=== PATIENT | male | born 1945 | race Two or more races ===

== ENCOUNTER 2022-12-26 07:07 | Outpatient (CLI) | payer OTHER | END 2022-12-26 07:16 | disposition home or self-care (01) | LOC: RX STUDY 07:07 | PROVIDERS: ATTEND Surgery | DX: Z93.3 Colostomy status (principal); K66.0 Peritoneal adhesions (postprocedural) (postinfection); K43.5 Parastomal hernia without obstruction or gangrene; D12.6 Benign neoplasm of colon, unspecified; K57.30 Diverticulosis of large intestine without perforation or abscess without bleeding ==

== ENCOUNTER 2023-02-08 07:08 | Inpatient (IN) | payer OTHER ==
[~2023-02-08] VITALS: Ht 152.4 cm; Wt 68.0 kg
[~2023-02-08 07:08] MED LIST: HORIZANT300 MG PO; LISINOPRIL40 MG PO; METFORMIN HCL1000 M2 PO; NORVASC5 MG PO; TOPROL XL25 M1 PO
[2023-02-20 11:48] LABS: HEMATOCRIT 36.4 % (39.0-48.0); HEMOGLOBIN 12.7 g/dL (13-16.00); MEAN CELL VOLUME 95.7 fL (80.0-100.00); MEAN CORPUSCULAR HEMOGLOBIN 33.5 pg (27.00-32.0); PLATELET COUNT 209 K/uL (150-450)
[2023-02-20 11:50] LABS: URINE APPEARANCE Clear; URINE BILIRRUBIN Negative (NEGATIVE); URINE BLOOD Negative; URINE COLOR Yellow; URINE EPITHELIAL CELLS 3.3 uL (0.0-38.8); URINE GLUCOSE Negative (NEGATIVE); URINE LEUKOCYTE Negative; URINE NITRATE Negative; URINE PROTEIN Trace (NEGATIVE); URINE RBC 2.7 uL (0.0-20.8); URINE UROBILINOGEN 0.2 E.U./dl; URINE WBC 1.8 uL (0.0-23.2)
[2023-02-20 12:30] LABS: INR 1.02; PARTIAL THROMBOPLASTIN TIME 23.4 SECONDS (22.0-34.0); PROTHROMBIN TIME 10.7 SECONDS (9.0-11.5)
[2023-02-20 12:38] LABS: CREATININE SERUM 1.11 mg/dL (0.70-1.30); GFR 64.58; POTASSIUM 4.35 mEq/L (3.5-5.1)
[2023-03-09] MEDS ORDERED: ST. JOSEPH ASPI81 M2 (13:06)
[2023-03-09] MEDS ORDERED: GABAPENTIN400 MG (13:06)
[2023-03-09] MEDS ORDERED: GLIPIZIDE5 MG (13:06)
[2023-03-09] MEDS ORDERED: ATORVASTATIN CA10 MG (13:06)
[2023-03-10 07:29] LABS: ALBUMIN 2.9 gm/dL (3.4-5.0); CALCIUM 8.5 mg/dL (8.5-10.1); CREATININE SERUM 1.09 mg/dL (0.70-1.30); GFR 65.95; PHOSPHOROUS 4.1 mg/dL (2.5-4.9); POTASSIUM 4.59 mEq/L (3.5-5.1)
[2023-03-10 08:05] LABS: MAGNESIUM 1.1 mg/dL (1.8-2.4)
[2023-03-10 08:36] LABS: HEMATOCRIT 36.4 % (39.0-48.0); HEMOGLOBIN 12.6 g/dL (13-16.00); MEAN CELL VOLUME 96.5 fL (80.0-100.00); MEAN CORPUSCULAR HEMOGLOBIN 33.5 pg (27.00-32.0); MEAN CORPUSCULAR HGB CONC 34.7 g/dl (32.0-36.0); PLATELET COUNT 218 K/uL (150-450); RED BLOOD COUNT 3.77 M/uL (4.00-6.00); RED CELL DISTRIBUTION WIDTH 13.3 % (11.5-14.5)
[2023-03-11 12:38] LABS: HEMATOCRIT 32.2 % (39.0-48.0); HEMOGLOBIN 10.9 g/dL (13-16.00); MEAN CELL VOLUME 96.4 fL (80.0-100.00); MEAN CORPUSCULAR HEMOGLOBIN 32.5 pg (27.00-32.0); MEAN CORPUSCULAR HGB CONC 33.8 g/dl (32.0-36.0); PLATELET COUNT 200 K/uL (150-450); RED BLOOD COUNT 3.34 M/uL (4.00-6.00); RED CELL DISTRIBUTION WIDTH 13.9 % (11.5-14.5)
[2023-03-11 12:56] LABS: CALCIUM 8.2 mg/dL (8.5-10.1); CREATININE SERUM 0.79 mg/dL (0.70-1.30); GFR 95.62; MAGNESIUM 1.8 mg/dL (1.8-2.4); POTASSIUM 4.03 mEq/L (3.5-5.1)
[2023-03-11 12:58] LABS: PHOSPHOROUS 2.1 mg/dL (2.5-4.9)
[2023-03-12 07:40] LABS: HEMATOCRIT 31.2 % (39.0-48.0); HEMOGLOBIN 10.7 g/dL (13-16.00); MEAN CELL VOLUME 96.3 fL (80.0-100.00); MEAN CORPUSCULAR HGB CONC 34.3 g/dl (32.0-36.0); PLATELET COUNT 187 K/uL (150-450); RED BLOOD COUNT 3.24 M/uL (4.00-6.00); RED CELL DISTRIBUTION WIDTH 13.7 % (11.5-14.5)
[2023-03-12 08:25] LABS: ALBUMIN 2.4 gm/dL (3.4-5.0); CALCIUM 8.5 mg/dL (8.5-10.1); CREATININE SERUM 0.79 mg/dL (0.70-1.30); GFR 95.62; MAGNESIUM 1.6 mg/dL (1.8-2.4); PHOSPHOROUS 2.1 mg/dL (2.5-4.9); POTASSIUM 4.14 mEq/L (3.5-5.1)
[2023-03-16] MEDS ORDERED: HYOSCYAMINE0.125 M1 SL (08:42)
== END 2023-03-16 11:35 | disposition home or self-care (01) | DRG 330 ==
LOC: SURH 02-09 09:09 → O/R 03-09 10:30 → SURH 03-09 10:30 → SURG 03-09 20:04 → O/R 03-10 10:14 → SURG 03-10 10:15 → O/R 03-10 10:57 → SURG 03-10 10:59 → SURH 03-11 14:13
PROVIDERS: Surgery; ADMIT Surgery; ATTEND Surgery
PROC: 0WUF0JZ Supplement Abdominal Wall with Synthetic Substitute, Open Approach (ICD-10-PCS; 2023-03-09)
PROC: 0WJF4ZZ Inspection of Abdominal Wall, Percutaneous Endoscopic Approach (ICD-10-PCS; 2023-03-09)
PROC: 0WQF0ZZ Repair Abdominal Wall, Open Approach (ICD-10-PCS; 2023-03-09)
PROC: 0WJF4ZZ Inspection of Abdominal Wall, Percutaneous Endoscopic Approach (ICD-10-PCS; 2023-03-09)
PROC: 0DTM0ZZ Resection of Descending Colon, Open Approach (ICD-10-PCS; 2023-03-09)
PROC: 0WQF0ZZ Repair Abdominal Wall, Open Approach (ICD-10-PCS; 2023-03-09)
PROC: 0WQF0ZZ Repair Abdominal Wall, Open Approach (ICD-10-PCS; 2023-03-09)
PROC: 0DTN4ZZ Resection of Sigmoid Colon, Percutaneous Endoscopic Approach (ICD-10-PCS; principal; 2023-03-09 12:00)
PROC: 0DBP4ZZ Excision of Rectum, Percutaneous Endoscopic Approach (ICD-10-PCS; 2023-03-09 12:00)
DX: K57.30 Diverticulosis of large intestine without perforation or abscess without bleeding (principal); K43.6 Other and unspecified ventral hernia with obstruction, without gangrene